=== PATIENT | female | born 1975 | race Caucasian/White ===

== ENCOUNTER 2016-07-28 11:27 | Outpatient (CLI) | payer BC, OTHER ==
[~2016-07-28 11:27] MED LIST: PANT40TA2 PO
== END 2016-07-28 23:59 | disposition home or self-care (01) ==
LOC: LAB 11:27
PROVIDERS: ATTEND Internal Medicine
DX: Z11.3 Encounter for screening for infections with a predominantly sexual mode of transmission (principal); R06.02 Shortness of breath; R76.11 Nonspecific reaction to tuberculin skin test without active tuberculosis
CPT/HCPCS: 36415; 71010; 86592

== ENCOUNTER 2016-09-23 06:57 | Outpatient (CLI) | payer BC, OTHER ==
[2016-09-23 09:00] LABS: BASOPHILS % (AUTO) 0.7 % (0.0-2.0); EOSINOPHILS % (AUTO) 0.7 % (0.0-7.0); HEMATOCRIT 40.8 % (37-47); HEMOGLOBIN 13.4 G/DL (12.0-16.0); LYMPHOCYTES # (AUTO) 1.5 K/UL (0.8-4.8); LYMPHOCYTES % (AUTO) 33.7 % (20.5-51.5); MEAN CORPUSCULAR HEMOGLOBIN 28.7 UUG (27.0-31.0); MEAN CORPUSCULAR HGB CONC 33 g/dL (32.0-37.0); MEAN CORPUSCULAR VOLUME 87.5 FL (81.0-99.0); MONOCYTES # (AUTO) 0.3 K/UL (0.1-1.30); MONOCYTES % (AUTO) 6.8 % (0.0-11.0); NEUTROPHILS # (AUTO) 2.8 K/UL (1.8-8.9); NEUTROPHILS % (AUTO) 58.1 % (38.5-71.5); PLATELET COUNT (AUTO) 350 K/UL (150-450); RED BLOOD CELL COUNT(AUTO) 4.67 MIL/UL (4.2-5.4); WHITE BLOOD COUNT (AUTO) 4.6 K/UL (4.0-11.2)
[2016-09-23 09:02] LABS: *BILIRUBIN,URIN NEGATIVE (NEGATIVE); *BLOOD, URINE NEGATIVE (NEGATIVE); *CLARITY,URINE CLEAR (CLEAR); *COLOR,URINE YELLOW (YELLOW); *KETONES,URINE NEGATIVE (NEGATIVE); LEUKOCYTE ESTERASE ,URINE NEGATIVE (NEGATIVE); NITRITE, URINE NEGATIVE (NEGATIVE); UGLUCOSE NEGATIVE (NEGATIVE)
[2016-09-23 09:12] LABS: BILIRUBIN,TOTAL 0.6 mg/dL (0.2-1.0); CREATININE 0.7 mg/dL (0.6-1.3); POTASSIUM 3.8 mmol/L (3.5-5.1); TOTAL PROTEIN, SERUM 7.7 g/dL (6.4-8.2)
[2016-09-23 09:20] LABS: THYROID STIMULATING HORMONE 1.258 mIU/mL (0.358-3.740)
[2016-09-23 09:33] LABS: *PROTEIN,URINE NEGATIVE (NEGATIVE); BACTERIA,URINE MODERATE /HPF (NONE SEEN); RBC,URINE 0-3 /HPF (0-3); SQUAMOUS EPITHELIAL CELL,UR MODERATE /HPF (NONE SEEN); WBC,URINE 0-3 /HPF (0-3)
[2016-09-24 08:09] LABS: VIT D, 25-HYDROXY 34.6 ng/mL (30.0-100.0)
== END 2016-09-23 23:59 | disposition home or self-care (01) ==
LOC: LAB 06:57
PROVIDERS: ATTEND Family Medicine
DX: Z00.01 Encounter for general adult medical examination with abnormal findings (principal); E55.9 Vitamin D deficiency, unspecified
CPT/HCPCS: 36415; 82306; 84443; 84480; 85025

== ENCOUNTER 2020-04-10 11:10 | Outpatient (CLI) | payer BC, OTHER ==
[2020-04-10 11:44] LABS: BASOPHILS % (AUTO) 0.4 % (0.0-2.0); EOSINOPHILS % (AUTO) 0.5 % (0.0-7.0); HEMATOCRIT 39.4 % (31.2-41.9); HEMOGLOBIN 13.1 g/dL (10.9-14.3); LYMPHOCYTES # (AUTO) 1.7 K/uL (20.0-40.0); LYMPHOCYTES % (AUTO) 32.5 % (20.5-51.5); MEAN CORPUSCULAR HEMOGLOBIN 29.3 uug (24.7-32.8); MEAN CORPUSCULAR HGB CONC 33 g/dL (32.3-35.6); MONOCYTES # (AUTO) 0.4 K/uL (2.0-10.0); MONOCYTES % (AUTO) 6.6 % (0.0-11.0); NEUTROPHILS # (AUTO) 3.2 K/uL (1.8-8.9); PLATELET COUNT (AUTO) 324 K/uL (179-408); RED BLOOD CELL COUNT(AUTO) 4.47 MIL/uL (3.63-4.92); WHITE BLOOD COUNT (AUTO) 5.4 K/uL (3.8-11.8)
[2020-04-10 11:47] LABS: BILIRUBIN,TOTAL 0.3 mg/dL (0.2-1.0); CREATININE 0.7 mg/dL (0.6-1.3); POTASSIUM 3.9 mmol/L (3.5-5.1)
== END 2020-04-10 23:59 | disposition home or self-care (01) ==
LOC: LAB 11:10
PROVIDERS: ATTEND Family Medicine
DX: D70.9 Neutropenia, unspecified (principal)
CPT/HCPCS: 36415; 85025

== ENCOUNTER 2020-12-04 07:31 | Outpatient (CLI) | payer BC, OTHER ==
[2020-12-04 09:08] LABS: *BILIRUBIN,URIN NEGATIVE (NEGATIVE); *BLOOD, URINE NEGATIVE (NEGATIVE); *CLARITY,URINE CLEAR (CLEAR); *COLOR,URINE YELLOW (YELLOW); *KETONES,URINE NEGATIVE (NEGATIVE); *UROBILINOGEN,URINE 0.2 E.U./dl (NORMAL); LEUKOCYTE ESTERASE ,URINE NEGATIVE (NEGATIVE); NITRITE, URINE NEGATIVE (NEGATIVE); PH,URINE 5.5 (5.0-8.0); UGLUCOSE NEGATIVE (NEGATIVE)
[2020-12-04 09:11] LABS: HEMATOCRIT 38.6 % (31.2-41.9); MEAN CORPUSCULAR HEMOGLOBIN 29.9 uug (24.7-32.8); MEAN CORPUSCULAR VOLUME 87.7 fL (75.5-95.3); PLATELET COUNT (AUTO) 419 K/uL (179-408)
[2020-12-04 09:38] LABS: THYROID STIMULATING HORMONE 1.262 mIU/mL (0.358-3.740)
[2020-12-04 09:54] LABS: BILIRUBIN,TOTAL 0.4 mg/dL (0.2-1.0); CREATININE 0.7 mg/dL (0.6-1.3); MAGNESIUM 1.9 mg/dL (1.8-2.4); POTASSIUM 4.1 mmol/L (3.5-5.1); TOTAL PROTEIN, SERUM 7.6 g/dL (6.4-8.2); URIC ACID 2.9 mg/dL (2.6-6.0)
== END 2020-12-04 23:59 | disposition home or self-care (01) ==
LOC: LAB 07:31
PROVIDERS: ATTEND Family Medicine
DX: E78.5 Hyperlipidemia, unspecified (principal); E53.9 Vitamin B deficiency, unspecified; E55.9 Vitamin D deficiency, unspecified; D70.9 Neutropenia, unspecified; M25.562 Pain in left knee; Z79.899 Other long term (current) drug therapy
CPT/HCPCS: 36415; 83735; 84443; 84550; 85025

== ENCOUNTER 2021-03-06 12:56 | Outpatient (CLI) | payer BC, OTHER ==
--- NOTE | 2021-03-07 07:48 | NUR ---
REPORT OF THE SHOULDER WAS FAXED TO DR. SELF THIS MORNING
== END 2021-03-06 23:59 | disposition home or self-care (01) ==
LOC: XRAY 12:56
PROVIDERS: ATTEND Family Medicine
DX: M25.511 Pain in right shoulder (principal)
CPT/HCPCS: 73030

== ENCOUNTER 2022-01-03 06:49 | Outpatient (CLI) | payer BC, OTHER ==
[2022-01-03 07:50] LABS: HEMATOCRIT 37.9 % (31.2-41.9); MEAN CORPUSCULAR HEMOGLOBIN 30.2 uug (24.7-32.8); MEAN CORPUSCULAR VOLUME 86.1 fL (75.5-95.3); PLATELET COUNT (AUTO) 331 K/uL (179-408)
[2022-01-03 07:54] LABS: *BILIRUBIN,URIN NEGATIVE (NEGATIVE); *BLOOD, URINE NEGATIVE (NEGATIVE); *CLARITY,URINE CLEAR (CLEAR); *COLOR,URINE YELLOW (YELLOW); *KETONES,URINE NEGATIVE (NEGATIVE); *UROBILINOGEN,URINE 0.2 E.U./dl (NORMAL); LEUKOCYTE ESTERASE ,URINE NEGATIVE (NEGATIVE); NITRITE, URINE NEGATIVE (NEGATIVE); UGLUCOSE NEGATIVE (NEGATIVE)
[2022-01-03 08:05] LABS: THYROID STIMULATING HORMONE 1.172 mIU/mL (0.358-3.740)
[2022-01-03 08:27] LABS: BILIRUBIN,TOTAL 0.6 mg/dL (0.2-1.0); CREATININE 0.9 mg/dL (0.6-1.3); MAGNESIUM 1.7 mg/dL (1.8-2.4); TOTAL PROTEIN, SERUM 7.5 g/dL (6.4-8.2); URIC ACID 2.8 mg/dL (2.6-6.0)
[2022-01-04 08:06] LABS: TRIIODOTHYRONINE, FREE 2.8 pg/mL (2.0-4.4)
== END 2022-01-03 23:59 | disposition home or self-care (01) ==
LOC: LAB 06:49
PROVIDERS: ATTEND Family Medicine
DX: Z00.01 Encounter for general adult medical examination with abnormal findings (principal); E55.9 Vitamin D deficiency, unspecified; Z79.899 Other long term (current) drug therapy
CPT/HCPCS: 36415; 82306; 82746; 83550; 83735; 84443; 84481; 84550; 85025

== ENCOUNTER 2023-10-09 23:16 | Emergency (ER) | payer BC, OTHER ==
[~2023-10-09] VITALS: Ht 167.6 cm; Wt 74.8 kg
[2023-10-09] MEDS ORDERED: LORA10TA61 PO (23:44)
[2023-10-09] MEDS ORDERED: DEXAMETHASONE SOD PHOSPHATE 4 MG INJ ONE (23:46)
[2023-10-09] MEDS ORDERED: diphenhydrAMINE 50 MG CAPSULE ONE (23:46)
[2023-10-09] MEDS: diphenhydrAMINE 50 MG CAPSULE PO ONE (23:56)
[2023-10-09] MEDS: DEXAMETHASONE SOD PHOSPHATE 4 MG INJ IM ONE (23:56)
[2023-10-10] VITALS: BP 129/65; TEMP 97.8; O2SAT 98
== END 2023-10-10 | disposition home or self-care (01) ==
LOC: ER 23:31
DX: L50.8 Other urticaria (principal); G43.909 Migraine, unspecified, not intractable, without status migrainosus; Z90.49 Acquired absence of other specified parts of digestive tract; Z79.899 Other long term (current) drug therapy
CPT/HCPCS: 99283; 96372; Q0163; J1100; A4606; A4663

== ENCOUNTER 2025-01-11 09:26 | Outpatient (CLI) | payer BC, OTHER ==
[~2025-01-11 09:26] MED LIST changes: +[UNRECOGNIZED DRUG - CODE] PO
[2025-01-11 09:50] LABS: PLATELET COUNT (AUTO) 324 K/uL (179-408); RED BLOOD CELL COUNT(AUTO) 4.59 MIL/uL (3.63-4.92); RED CELL DISTRIBUTION WIDTH 13.9 % (12.3-17.7); WHITE BLOOD COUNT (AUTO) 3.9 K/uL (3.8-11.8)
[2025-01-11 10:12] LABS: IRON, SERUM 73 ug/dL (50-175)
== END 2025-01-11 23:59 | disposition home or self-care (01) ==
LOC: LAB 09:26
PROVIDERS: ATTEND Family Medicine
DX: D72.829 Elevated white blood cell count, unspecified (principal)
CPT/HCPCS: 36415; 83550; 85025